=== PATIENT | female | born 1980 | race Caucasian/White ===

== ENCOUNTER 2019-07-27 11:40 | Emergency (ER) | payer MEDICAID ==
[~2019-07-27] VITALS: Ht 160 cm; Wt 61.2 kg
--- NOTE | 2019-07-27 11:40 | NUR ---
Patient to bed and gown. Side rails up.
[2019-07-27 11:46] VITALS: BP_SYST 135
--- NOTE | 2019-07-27 12:11 | NUR ---
Patient brought in by self and significant other with complain of vaginal bleeding since today. Patient reported she is 7 weeks and has had 3 miscarriages in the past. Patient does not complain of pain and is not in distress at this time.
--- NOTE | 2019-07-27 12:17 | NUR ---
Dr. Gee at bedside for examination.
--- NOTE | 2019-07-27 12:49 | NUR ---
Pt resting at this time, no s/s of distress.
[2019-07-27 12:52] LABS: BASOPHILS % (AUTO) 0.3 % (0.0-2.0); EOSINOPHILS # (AUTO) 0.1 K/uL (0.0-0.4); EOSINOPHILS % (AUTO) 0.9 % (0.0-4.0); HEMATOCRIT 43.4 % (36-48); LYMPHOCYTES # (AUTO) 1.5 K/uL (1.0-5.5); LYMPHOCYTES % (AUTO) 18.2 % (20.5-51.5); MEAN CORPUSCULAR HEMOGLOBIN 31 pg (27-31); MEAN CORPUSCULAR HGB CONC 35 % (32-36); MEAN CORPUSCULAR VOLUME 90 fL (79.0-98.0); MONOCYTES # (AUTO) 0.4 K/uL (0.0-1.0); MONOCYTES % (AUTO) 4.9 % (1.7-9.3); NEUTROPHILS # (AUTO) 6.2 K/uL (1.8-7.7); NEUTROPHILS % (AUTO) 75.7 % (40.0-70.0); PLATELET COUNT (AUTO) 292 K/uL (130-430); RED BLOOD CELL COUNT(AUTO) 4.85 MIL/uL (4.2-6.2); RED CELL DISTRIBUTION WIDTH 12.9 % (9.0-15.0); WHITE BLOOD COUNT (AUTO) 8.2 K/uL (4.8-10.8)
[2019-07-27 14:25] VITALS: BP_SYST 135
--- NOTE | 2019-07-27 14:25 | NUR ---
Patient given written and verbal discharge instructions and verbalizes understanding. ER MD discussed with patient the results and treatment provided. Patient in stable condition. ID arm band removed. Patient educated on pain management and to follow up with PMD. Pain Scale 0/10.Opportunity for questions provided and answered. Medication side effect fact sheet provided.
== END 2019-07-27 14:25 | disposition home or self-care (01) ==
LOC: SED 11:40
DX: O03.9 Complete or unspecified spontaneous abortion without complication (principal)
CPT/HCPCS: 36415; 76801; 76817; 81025; 84702-TC; 85025; 99284

== ENCOUNTER 2020-08-20 18:42 | Emergency (ER) | payer MEDICAID ==
[~2020-08-20] VITALS: Ht 160 cm; Wt 61.2 kg
[2020-08-20 18:55] VITALS: BP_SYST 154
--- NOTE | 2020-08-20 18:55 | NUR ---
PT TO ER TENT FOR EVALUATION
--- NOTE | 2020-08-20 18:58 | NUR ---
PT AAO AND AMBULATORY REPORTING THAT SHE IS NINE WEEKS AND TESTED POSITIVE FOR COVID TODAY. PT WAS RECENTLY DIAGNOSED WITH DIABETES AND EXPERIENCING N/V. PT REPORTS 4/10 PAIN SCALE CURRENTLY.
--- NOTE | 2020-08-20 19:00 | NUR ---
DR. KLEIN TO [facility] FOR EVALUATION
--- NOTE | 2020-08-20 19:23 | NUR ---
LAB TO TENT TO DRAW BLOOD FOR ANALYSIS
--- NOTE | 2020-08-20 19:26 | NUR ---
ER Dr. Jane at bedside examining patient.
[2020-08-20 19:39] LABS: BASOPHILS % (AUTO) 0.3 % (0.0-2.0); HEMATOCRIT 46.8 % (36-48); HEMOGLOBIN 16.5 g/dL (12.0-16.0); LYMPHOCYTES # (AUTO) 0.8 K/uL (1.0-5.5); LYMPHOCYTES % (AUTO) 19.3 % (20.5-51.5); MEAN CORPUSCULAR HEMOGLOBIN 31 pg (27-31); MEAN CORPUSCULAR HGB CONC 35 % (32-36); MEAN CORPUSCULAR VOLUME 89 fL (79.0-98.0); MONOCYTES # (AUTO) 0.5 K/uL (0.0-1.0); MONOCYTES % (AUTO) 11.8 % (1.7-9.3); NEUTROPHILS % (AUTO) 68.6 % (40.0-70.0); PLATELET COUNT (AUTO) 236 K/uL (130-430); RED BLOOD CELL COUNT(AUTO) 5.25 MIL/uL (4.2-6.2); RED CELL DISTRIBUTION WIDTH 13.3 % (9.0-15.0); WHITE BLOOD COUNT (AUTO) 4.3 K/uL (4.8-10.8)
[2020-08-20 19:48] LABS: ACETONE, SERUM TRACE (NEGATIVE)
[2020-08-20 19:57] LABS: ALANINE AMINOTRANSFERASE 31 U/L (12-78); ALBUMIN 3.7 g/dL (3.4-4.8); AMYLASE 41 U/L (0-100); ANION GAP 20 (5-15); ASPARTATE AMINOTRANSFERASE 18 U/L (10-37); CALCIUM 9.1 mg/dL (8.4-11.0); CHLORIDE 93 mmol/L (98-107); CREATININE 0.54 mg/dL (0.55-1.30); GLUCOSE 249 mg/dL (70-99); LIPASE 112 U/L (73-393); POTASSIUM 3.1 mmol/L (3.5-5.1); SODIUM SERUM 127 mmol/L (136-145); TOTAL BILIRUBIN 0.5 mg/dL (0.0-1.0); UREA NITROGEN, BLOOD 9 mg/dL (8-21)
--- NOTE | 2020-08-20 20:29 | NUR ---
PT MOVED TO BED 4, GOWNED AND ATTACHED TO MONITOR
--- NOTE | 2020-08-20 21:40 | NUR ---
ULTRASOUND AT BEDSIDE.
[2020-08-20] MEDS: NACL 0.9% 1,000 ML IV ONE (21:50)
--- NOTE | 2020-08-20 22:13 | NUR ---
LOVELY - BS 221. AWARE.
[2020-08-20 22:40] LABS: BILIRUBIN,URINE NEGATIVE (NEGATIVE); BLOOD, URINE NEGATIVE (NEGATIVE); CLARITY/URINE CLEAR (CLEAR); COLOR,URINE YELLOW (YELLOW); GLUCOSE,URINE 2+ (NEGATIVE); KETONES,URINE 3+ (NEGATIVE); LEUKOCYTE ESTERASE ,URINE NEGATIVE (NEGATIVE); NITRITE, URINE NEGATIVE (NEGATIVE); PH,URINE 5.5 (5.0-8.0); PROTEIN URINE 2+ (NEGATIVE); UROBILINOGEN,URINE 0.2 (0.2-1.0)
[2020-08-20 23:09] LABS: BACTERIA,URINE FEW /HPF (None Seen); FINE GRANULAR CASTS,URINE 0-10 /LPF (None Seen); RBC,URINE 0-3 /HPF (0-3); WBC,URINE 0-3 /HPF (0-3)
--- NOTE | 2020-08-20 23:39 | NUR ---
Patient resting quietly. No acute distress noted. Vital signs within normal range.
--- NOTE | 2020-08-21 00:30 | NUR ---
pt changed, cleaned and linens switched out. pt stating she is starving and would like some food. pt educated she must be nothing by mouth as of right now per MD orders.
[2020-08-21] MEDS: KCL 20 mEq in NS 1000 mL 1,000 ML IV ONE ×2 (00:33→00:39)
--- NOTE | 2020-08-21 01:23 | NUR ---
Patient resting quietly. No acute distress noted. Breathing even and unlabored. Vital signs within normal range. Will continue to monitor.
--- NOTE | 2020-08-21 02:05 | NUR ---
pt will be transferred to [facility], room 108B. Accepting physician is Dr. Miller.
--- NOTE | 2020-08-21 02:17 | NUR ---
LOVELY - BS 210. AWARE.
--- NOTE | 2020-08-21 02:29 | NUR ---
Patient to be transferred to [facility]. Is being transferred due to higher level of care. Receiving facility has accepting physician and available space. ER physician has signed transfer form. Patient or responsible alliance party has agreed to transfer and signed form. Patient belongings inventoried and will be sent with patient. Copy of nursing notes, lab reports, EKG, Physicians Orders and X-rays to be sent with patient. Report called to DEVIN VELÁSQUEZ at receiving facility. Receiving physician is DR. GARCIA. ambulance service has been called for transfer. ETA is 0330.
--- NOTE | 2020-08-21 03:38 | NUR ---
ETA UPDATED TO 8426.
--- NOTE | 2020-08-21 04:24 | NUR ---
Patient resting quietly. No acute distress noted. Vital signs within normal range.
--- NOTE | 2020-08-21 04:55 | NUR ---
ETA UPDATE TO 9733.
--- NOTE | 2020-08-21 05:08 | NUR ---
PT AMBULATES TO BEDSIDE COMMODE TO USE RESTROOM.
--- NOTE | 2020-08-21 05:08 | NUR ---
LOVELY - BS 213. AWARE.
--- NOTE | 2020-08-21 06:45 | NUR ---
CALLED [facility] TO RECEIVE UPDATED ETA FOR TRANSPORT. [facility] STATES CREW ASSIGNED TO [employer] PATIENT IS HELD UP IN ANOTHER ER. TRANSPORT WILL BE DELAYED.
--- NOTE | 2020-08-21 07:10 | NUR ---
Assumed care of patient, currently resting in bed, awaiting transfer to [facility]. No distress noted.
--- NOTE | 2020-08-21 07:14 | NUR ---
REPORT GIVEN TO DEVIN LOZANO FOR CONTINUATION OF CARE.
[2020-08-21 07:39] VITALS: BP_SYST 126
--- NOTE | 2020-08-21 07:40 | NUR ---
Patient to be transferred to [facility]. Is being transferred due to higher level of care. Receiving facility has accepting physician and available space. ER physician has signed transfer form. Patient or responsible democrat has agreed to transfer and signed form. Patient belongings inventoried and will be sent with patient. Copy of nursing notes, lab reports, EKG, Physicians Orders and X-rays to be sent with patient. Report called to DEVIN Paredes at receiving facility. Receiving physician is Dr. Miller. [facility] transport ambulance service has been called for transfer.
== END 2020-08-21 07:39 | disposition short-term general hospital (02) ==
LOC: SED 18:42
DX: O98.511 Other viral diseases complicating pregnancy, first trimester (principal); U07.1 COVID-19; E11.10 Type 2 diabetes mellitus with ketoacidosis without coma; Z3A.09 9 weeks gestation of pregnancy
CPT/HCPCS: 36415; 76801; 76817; 80053; 81000-TC; 82009-TC; 82150-TC; 82962; 83605; 83690-TC; 84702-TC; 85025; 86901; 96360; 96361; 99285; J3480